=== PATIENT | male | born 1950 | race Caucasian/White ===

== ENCOUNTER → 2016-11-03 | Outpatient (CLI) | payer OTHER, MEDICARE ==
[~2016-11-03] MED LIST: IOPAMIDOL (ISOVUE 370) 100 ML BTL IV ONE
[2016-11-03 13:12] LABS: CREATININE 1.2 mg/dL (0.7-1.3); GLOMERULAR FILTRATION RATE > 60
== END ==
LOC: FIMAGING 12:28
PROVIDERS: ATTEND Radiology Diagnostic Radiology
DX: I71.4 Abdominal aortic aneurysm, without rupture (principal); Z95.9 Presence of cardiac and vascular implant and graft, unspecified
CPT/HCPCS: 74174; Q9967

== ENCOUNTER → 2016-11-03 | Outpatient (CLI) | payer OTHER, MEDICARE | LOC: BHFA 14:00 | PROVIDERS: ATTEND Internal Medicine Cardiovascular Disease | DX: I71.4 Abdominal aortic aneurysm, without rupture (principal); I50.22 Chronic systolic (congestive) heart failure; I25.5 Ischemic cardiomyopathy | CPT/HCPCS: Q9967 ==

== ENCOUNTER → 2017-06-17 | Outpatient (CLI) | payer OTHER, MEDICARE | LOC: BHFA 09:00 | PROVIDERS: ATTEND Internal Medicine Cardiovascular Disease | DX: I25.10 Atherosclerotic heart disease of native coronary artery without angina pectoris (principal); Z79.899 Other long term (current) drug therapy ==

== ENCOUNTER 2018-03-07 09:06 | Day surgery (SDC) | payer OTHER, MEDICARE ==
[2018-03-07] MEDS ORDERED: DIAZEPAM 5 MG TAB PO ONE (09:10)
[2018-03-07] MEDS ORDERED: diphenhydrAMINE 25 MG CAP PO ONE ×2 (09:10→09:50)
[2018-03-07] MEDS ORDERED: ceFAZolin 2 GM/DEXTROSE 100 ML IV ONE (09:10)
[2018-03-07] MEDS ORDERED: BACITRACIN IRRIGATION/NS 50,000 UNITS/1,000 ML BTL IRR ONE (09:10)
[2018-03-07] MEDS ORDERED: NS 1,000 ML IV ONE (09:10)
--- NOTE | 2018-03-07 09:10 | PDPROPOC ---
Sedation Plan of Care Sedation Plan of Care: vital signs stable, mental status noted, patient educated of risks, benefits, alternatives, patient can tolerate sedation ASA Classification: ASA 3 Planned drugs: fentanyl, midazolam Mallampati Score: Class 3 Mallampati Reference Image: Patient passed 3-3-2 rule?: No
--- NOTE | 2018-03-07 09:11 | PDHPUP ---
History & Physical Update H&P update statement: This history and physical update is based on an assessment of the patient which was completed after admission or registration (within 24 hours), but prior to the surgery/procedure. H&P update: H&P reviewed & patient examined, no change in patient's condition since H&P completed
--- NOTE | 2018-03-07 09:37 | PDGENHP ---
History & Physical Chief Complaint: here for Gen change History of Present Illness: Patient with ischemic cardiomyopathy s/p AICD, VT, and AICD therapy in the past. His device has reached elective indication. Pertinent Past, Social, Family History: abdominal aortic aneurysm s/p endovascular repair, prior CABG, sleep apnea, Relevant Physical Exam: Obese man in no acute distress. Neck reveals no JVD or carotid bruit. Heart regular rate and rhythm with grade I systolic murmur. Lungs are clear auscultation bilaterally, 1+ pitting edema bilaterally. Cardiorespiratory Assessment: Please see above. the patient has AICD at [facility] with history of ischemic cardiomyopathy, ventricular tachycardia with appropriate AICD shock. Currently no recent febrile illness. Needs AICD generator change. Risks of infection discussed. No true alternative to AICD gen change. A working AICD is in his best interest.
[2018-03-07] MEDS ORDERED: DIAZEPAM 5 MG TAB ONE (09:52)
[2018-03-07 10:07] LABS: PLATELET COUNT 157 10^3/uL (150-400)
[2018-03-07 10:14] LABS: INR 0.99 (0.83-1.16); PROTIME(PATIENT) 13.3 SEC (12.0-15.0)
--- NOTE | 2018-03-07 10:56 | CPEKG ---
Test Reason : OPEN Blood Pressure : / mmHG Vent. Rate : 067 BPM Atrial Rate : 060 BPM P-R Int : 156 ms QRS Dur : 099 ms QT Int : 483 ms P-R-T Axes : 054 -29 098 degrees QTc Int : 510 ms Atrial-paced complexes Multiple ventricular premature complexes Borderline left axis deviation Borderline T wave abnormalities Borderline prolonged QT interval Confirmed by Alfredo Jackson ([id number]) on 03/07/2018 10:56:09 AM Referred By: Confirmed By:Alfredo Jackson
[2018-03-07] MEDS ORDERED: LIDOCAINE 1% 300 MG/30 ML SDV ONE (11:24)
[2018-03-07] MEDS ORDERED: BUPIVACAINE 0.5% 30 ML SDV ONE (11:24)
[2018-03-07] MEDS ORDERED: MIDAZOLAM 2 MG/2 ML VIAL ONE ×2 (11:24→12:04)
[2018-03-07] MEDS ORDERED: LIDO/EPI 1% **for epidural** 30 ML SDV ONE (11:24)
[2018-03-07] MEDS ORDERED: fentaNYL 100 MCG/2 ML INJ ONE ×3 (11:24→12:04)
--- NOTE | 2018-03-07 13:01 | EPPROC ---
Electrophysiology Procedure Note: PROCEDURE: Dual chamber automatic implantable cardioverter-defibrillator replacement. DATE OF PROCEDURE: 03/07/2018 EXPLANTED DEVICE: BIOTRONIK Lumax 540 DR-T Model #[id number] Serial # [id number] IMPLANTED DEVICE: Itrevia 7 DR-T DF-1 Model #[id number] Serial # [id number] LEADS: Right Atrial: SIEMENS/PACESETTER Model #1488TC-46 Serial #[id number] Right Ventricle: SIEMENS/PACESETTER Model #1580-65 Serial [id number] COMPLICATIONS: None CORPORATE TRAVEL COORDINATOR: Santhosh Dutta MD INDICATION AND APPROPRIATE USE CRITERIA: The device is being replaced for [facility] alerts that are unable to be suppressed. The original device was placed for ischemic cardiomyopathy and reduced EF <40%. (MADIT II criteria) PROCEDURE IN DETAIL: After informed consent was obtained and n.p.o. status was confirmed, the region of the left subclavicular fossa was cleaned, prepped and draped in a sterile fashion. Approximately 30 mL of 1% lidocaine was utilized for local anesthesia. The skin was sharply incised with a #10 blade. Electrocautery and local pressure were used for hemostasis. Sharp and blunt dissection was used to access the pacemaker pocket overlying the pectoralis major fascia. The pocket was thoroughly flushed and checked for bleeding. Hemostasis was established and the old device was removed from the pocket. The atrial and ventricular lead set screws were loosened. The atrial lead serial number was checked and placed in the upper pole lead housing of the new pulse generator and set screw firmly applied. The procedure was repeated for the RV lead as well as the defibrillator SVC and RV coils. Ventricular lead threshold was tested and found to be 1.9 V at 0.4 ms width. R- wave amplitude was measured at 10.10 mV. Lead impedance was 348 Ohms. Atrial lead threshold was tested at 1.0 V at 0.4 ms width. P-wave amplitude was 3.10 mV , lead impedance was 536 Ohms. Defibrillator shock coil impedance 66 Ohms. The device was placed in the pocket and sutured in place with #0 Ethibond. The skin was closed with a 3-layered 3-0 Vicryl, 2-0 Vicryl and 4-0 Monocryl repair with excellent wound edge opposition and hemostasis documented. The device was set with a VT1 monitoring zone of greater than 143 BPM (beats per minute) VT2 zone of 182 with ATP (Antitachycardia pacing) X 3 with 3 bursts of 10 pulses at 85% with 10 millisecond decrement in between each burst. Initial shock will be 25 joules, followed by a 30 Joules shock x 1, and 40 Joules x 6 if needed. The V fib zone is set at 207 BPM with ATP x 1 only if the rhythm meets stability criteria 30 Joules x 1 (12msec difference between cycle lengths at maximum) otherwise the device will deliver a 40 Joule shocks x 7 cycles with alternating polarity between each of those shocks. The patient returned to the post cath recovery unit in good and stable condition where a stat postoperative chest x-ray and EKG will be obtained. FINAL IMPRESSION: Successful elective dual chamber automatic implantable cardioverter-defibrillator/pulse generator replacement without immediate complication. Patient Problems: Problems Problem Status Onset Abdominal aortic aneurysm greater than 39 mm in diameter Acute Ventricular tachycardia Acute
--- NOTE | 2018-03-07 15:13 | CPEKG ---
Test Reason : OPEN Blood Pressure : / mmHG Vent. Rate : 062 BPM Atrial Rate : 050 BPM P-R Int : 171 ms QRS Dur : 098 ms QT Int : 518 ms P-R-T Axes : 072 -24 128 degrees QTc Int : 526 ms Atrial-paced complexes Multiple ventricular premature complexes Borderline left axis deviation Nonspecific T abnormalities, lateral leads Confirmed by Alfredo Jackson ([id number]) on 03/07/2018 3:12:45 PM Referred By: Confirmed By:Alfredo Jackson
== END 2018-03-07 15:22 | disposition home or self-care (01) ==
LOC: FCATH 09:06
PROVIDERS: ATTEND Internal Medicine Cardiovascular Disease
PROC: 0JH607Z Insertion of Cardiac Resynchronization Pacemaker Pulse Generator into Chest Subcutaneous Tissue and Fascia, Open Approach (ICD-10-PCS; principal; 2018-03-07)
PROC: 0JPT0PZ Removal of Cardiac Rhythm Related Device from Trunk Subcutaneous Tissue and Fascia, Open Approach (ICD-10-PCS; principal; 2018-03-07)
DX: Z45.02 Encounter for adjustment and management of automatic implantable cardiac defibrillator (principal); I25.5 Ischemic cardiomyopathy
CPT/HCPCS: C1721; J0690; J1200; J2250; J3010

== ENCOUNTER → 2018-10-24 | Outpatient (CLI) | payer OTHER, MEDICARE | LOC: FIMAGING 08:17 ==